=== PATIENT | female | born 1990 | race Caucasian/White ===

== ENCOUNTER 2019-09-18 17:27 | Emergency (ER) | payer SELFPAY ==
[~2019-09-18] VITALS: Ht 160 cm; Wt 65.8 kg
--- NOTE | 2019-09-18 17:55 | NUR ---
ED Nurse Note:urine sent to labs
[2019-09-18 18:24] LABS: BILIRUBIN, URINE NEGATIVE (NEGATIVE); GLUCOSE, URINE (UA) NEGATIVE (NEGATIVE); KETONES,URINE NEGATIVE (NEGATIVE); LEUKOCYTE ESTERASE ,URINE 1+ (NEGATIVE); NITRITE,URINE NEGATIVE (NEGATIVE); PH,URINE 6 (4.5-8.0); PROTEIN,URINE NEGATIVE (NEGATIVE); UROBILINOGEN,URINE NORMAL MG/DL (0.0-1.0)
[2019-09-18 18:25] LABS: APPEARANCE,URINE SLIGHTLY CLOUDY; COLOR,URINE YELLOW
--- NOTE | 2019-09-18 18:33 | Emergency Room Report ---
History of Present Illness General Chief Complaint: Complications Source: Patient Present Illness HPI 29-year-old female with no symptom past medical history and a narcotic abuse currently taking Suboxone and also daily tobacco smoker here requesting a test. Patient reports that she took 3 test at home 3 days ago and they all turned positive. Patient has no other complaint, no abdominal cramping, vaginal bleeding or spotting. Patient is A1. Patient denies chest pain, shortness of breath, palpitation, nausea vomiting, headache dizziness, syncope. 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 Last menstrual period was August 09 regular. Allergies: Coded Allergies: SULFAMETHOXAZOLE (Verified Allergy, Severe, Anaphylaxis, 09/18/19) TRIMETHOPRIM (Verified Allergy, Severe, Anaphylaxis, 09/18/19) Patient History Past Medical History: see triage record Past Surgical History: unable to obtain Pertinent Family History: none Social History: Reports: smoking Last Menstrual Period: 08/08/19 Now: Yes : 3 Para: 2 Immunizations: UTD Reviewed Nursing Documentation: PMH: Agreed; PSxH: Agreed Nursing Documentation-PMH Past Medical History: No Stated History Review of Systems All Other Systems: negative except mentioned in HPI Physical Exam Vital Signs Date Time Temp Pulse Resp B/P (MAP) Pulse Ox O2 Delivery O2 Flow Rate FiO2 09/18/19 17:32 98.4 89 19 110/75 (87) 99 Room Air Sp02 EP Interpretation: reviewed, normal General Appearance: no apparent distress, alert, GCS 15, non-toxic Head: normocephalic, atraumatic Eyes: bilateral eye normal inspection, bilateral eye PERRL ENT: hearing grossly normal, normal pharynx, no angioedema, normal voice Neck: full range of motion, supple/symm/no masses Respiratory: chest non-tender, lungs clear, normal breath sounds, speaking full sentences Cardiovascular #1: regular rate, rhythm, no edema, no murmur Gastrointestinal: normal bowel sounds, non tender, soft, non-distended, no guarding, no rebound Rectal: deferred Genitourinary: normal inspection, no CVA tenderness Musculoskeletal: back normal, gait/station normal, normal range of motion, non- tender, no calf tenderness Neurologic: alert, oriented x3, responsive, motor strength/tone normal, sensory intact, speech normal Psychiatric: judgement/insight normal, memory normal, mood/affect normal, no suicidal/homicidal ideation Skin: no rash Lymphatic: no adenopathy Medical Decision Making PA Attestation All my diagnosis and treatment plans were reviewed ad discussed with my supervising physician Dr. Theodore Diagnostic Impression: Primary Impression: confirmed by positive urine test Additional Impression: UTI (urinary tract infection) during ER Course 29-year-old female with no symptom past medical history and a narcotic abuse currently taking Suboxone and also daily tobacco smoker here requesting a test. Patient reports that she took 3 test at home 3 days ago and they all turned positive. Patient has no other complaint, no abdominal cramping, vaginal bleeding or spotting. Patient is A1. Patient denies chest pain, shortness of breath, palpitation, nausea vomiting, headache dizziness, syncope. 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 Last menstrual period was August 09 regular. Ddx considered but are not limited to: Positive urine test, complication, abdominal pain during , ectopic , UTI Vital signs: are WNL, pt. is afebrile H&PE are most consistent with: Positive urine test, incidental finding of UTI ORDERS: UA, urine test, Macrobid, vitamins ED INTERVENTIONS: None required at this time. DISCHARGE: At this time pt. is stable for d/c to home. Will provide printed patient care instructions, and any necessary prescriptions. Care plan and follow up instructions have been discussed with the patient prior to discharge. Take medication as directed primary care provider, need to be seen by an OB/ [employer]. If worsening symptoms consult with your psychiatrist Suboxone intake. If worsening symptoms return to the emergency room. Last Vital Signs Date Time Temp Pulse Resp B/P (MAP) Pulse Ox O2 Delivery O2 Flow Rate FiO2 09/18/19 17:32 98.4 89 19 110/75 (87) 99 Room Air Disposition: HOME, SELF-CARE Condition: Stable Scripts Nitrofurantoin Monohyd/M-Cryst* (MACROBID 100 MG*) 100 Mg Capsule 100 MG ORAL EVERY 12 HOURS for 7 Days, #14 CAP Prov: Dina Saucedo 09/18/19 Vit No.78/Iron/Fa (PRENATABS FA TABLET) 1 Each Tablet 1 EACH PO DAILY, #30 TAB Prov: Dina Saucedo 09/18/19 Patient Instructions: and Urinary Tract Infection Additional Instructions: Take medication as directed, follow-up with your [employer]STER IN [employer], start your vitamins today. If worsening symptoms, abdominal cramping, clotting, fever and chills return to the emergency room. Avoid smoking while . Dina Saucedo Sep 18, 2019 18:33
[2019-09-18] MEDS ORDERED: PRENATABS FA T1 EACH PO (18:34)
[2019-09-18] MEDS ORDERED: NITROFURANTOIN100 M2 ORAL (18:34)
--- NOTE | 2019-09-18 19:00 | NUR ---
ER DISCHARGE NOTE: Patient is cleared to be discharged per ERMD, pt is aox4, on room air, with stable vital signs. pt was given dc and prescription instructions, pt was able to verbalize understanding, pt is able to ambulate with steady gait. pt took all belongings.
[2019-09-18 19:23] VITALS: BP 110/75
== END 2019-09-18 19:24 | disposition home or self-care (01) ==
LOC: EMR 17:48
DX: O23.41 Unspecified infection of urinary tract in pregnancy, first trimester (principal); Z3A.00 Weeks of gestation of pregnancy not specified; Z88.2 Allergy status to sulfonamides; Z88.1 Allergy status to other antibiotic agents
CPT/HCPCS: 81001; 81025; 99282